=== PATIENT | male | born 1990 | race African-American/Black ===

== ENCOUNTER 2018-03-30 21:40 | Emergency (ER) | payer MEDICAID, OTHER ==
[~2018-03-30] VITALS: Ht 162.6 cm; Wt 69.0 kg
[~2018-03-30 21:40] MED LIST: SEROQUEL
[2018-03-30] MEDS ORDERED: ONDANSETRON HCL 4MG/2ML VIAL IV STA (22:23)
[2018-03-30] MEDS ORDERED: SODIUM CHLORIDE 0.9% 1,000 ML IV ONE (22:23)
[2018-03-30 23:20] LABS: BASOPHILS % 0.9 % (0.0-2.0); EOSINOPHILS % 3.2 % (0.0-5.0); HEMATOCRIT. 43.5 % (42.0-52.0); HEMOGLOBIN. 14.6 g/dL (14.0-18.0); LYMPHOCYTES % 32.4 % (20.0-50.0); MEAN CORPUSCULAR HEMOGLOBIN 27.6 pg (28.0-32.0); MEAN CORPUSCULAR VOLUME 82.2 fL (80.0-94.0); MEAN PLATELET VOLUME 10.5 fl (7.4-10.4); MONOCYTES % 12.2 % (2.0-8.0); NEUTROPHILS % 51.3 % (40.0-76.0); PLATELET 131 x1000/uL (130-400); RED BLOOD CELL COUNT 5.29 mill/uL (4.7-6.1); RED CELL DISTRIBUTION WIDTH 14.3 % (11.6-14.6)
[2018-03-30 23:20] LABS: CLARITY URINE CLEAR (CLEAR); COLOR URINE DARK YELLOW (YELLOW); KETONES URINE TRACE (NEGATIVE); LEUKOCYTE ESTERASE URINE NEGATIVE (NEGATIVE); NITRITE URINE NEGATIVE (NEGATIVE); OCCULT BLOOD URINE NEGATIVE (NEGATIVE); PH URINE 5.5 (4.5-8.0); PROTEIN URINE NEGATIVE (NEGATIVE); SPECIFIC GRAVITY URINE 1.025 (1.005-1.030)
[2018-03-30 23:21] LABS: CHLORIDE 105 mEq/L (98-107)
[2018-03-30 23:23] LABS: INR 1.1; PROTHROMBIN TIME 10.7 sec (9.1-11.1)
[2018-03-30] MEDS ORDERED: ACETAMINOPHEN 325MG TABLET PO ONE (23:30)
[2018-03-31 05:56] VITALS: BP 116/64
== END 2018-03-31 09:30 | disposition home or self-care (01) ==
LOC: ER 21:40
DX: R10.9 Unspecified abdominal pain (principal); R11.2 Nausea with vomiting, unspecified; J45.909 Unspecified asthma, uncomplicated; F12.10 Cannabis abuse, uncomplicated; F31.9 Bipolar disorder, unspecified; Z88.8 Allergy status to other drugs, medicaments and biological substances
CPT/HCPCS: 36415; 80053; 81003; 83690; 85025; 85610; 96361; 96374; 99285; J2405; J7030

== ENCOUNTER 2020-03-26 09:00 | Emergency (ER) | payer MEDICAID, OTHER ==
[~2020-03-26] VITALS: Ht 167.6 cm; Wt 65.0 kg
[2020-03-26] MEDS ORDERED: IBUPROFEN 600MG TABLET PO ONE (09:30)
[2020-03-26 09:40] VITALS: BP 134/82
== END 2020-03-26 09:48 | disposition home or self-care (01) ==
LOC: ER 09:00
DX: S10.93XA Contusion of unspecified part of neck, initial encounter (principal); S30.0XXA Contusion of lower back and pelvis, initial encounter; S00.93XA Contusion of unspecified part of head, initial encounter; J45.909 Unspecified asthma, uncomplicated; F12.10 Cannabis abuse, uncomplicated; Z88.3 Allergy status to other anti-infective agents; V49.9XXA Car occupant (driver) (passenger) injured in unspecified traffic accident, initial encounter; Y93.89 Activity, other specified; Y92.89 Other specified places as the place of occurrence of the external cause; Y99.8 Other external cause status
CPT/HCPCS: 99283

== ENCOUNTER 2021-03-22 02:51 | Emergency (ER) | payer OTHER ==
[~2021-03-22] VITALS: Ht 167.6 cm; Wt 58.0 kg
[2021-03-22] MEDS ORDERED: FAMOTIDINE 20MG TABLET PO ONE (04:00)
[2021-03-22] MEDS ORDERED: DICYCLOMINE 10 MG/5 ML ORAL SYR PO ONE (04:00)
[2021-03-22] MEDS ORDERED: VISCOUS LIDOCAINE 2% 15 ML UDC PO ONE (04:00)
[2021-03-22 04:04] VITALS: BP 112/48
[2021-03-22] MEDS ORDERED: FAMO-135 MT (05:11)
== END 2021-03-22 05:33 | disposition home or self-care (01) ==
LOC: ER 02:51
DX: R10.13 Epigastric pain (principal); K21.9 Gastro-esophageal reflux disease without esophagitis; F12.10 Cannabis abuse, uncomplicated; J45.909 Unspecified asthma, uncomplicated; Z88.8 Allergy status to other drugs, medicaments and biological substances
CPT/HCPCS: 99284

== ENCOUNTER 2021-06-14 22:33 | Emergency (ER) | payer MEDICAID, OTHER ==
[~2021-06-14] VITALS: Ht 165.1 cm; Wt 75.0 kg
[~2021-06-14 22:33] MED LIST changes: +FAMO-135 MT
[2021-06-14 23:13] VITALS: BP 117/89
[2021-06-14] MEDS ORDERED: IBUPROFEN 600MG TABLET PO ONE (23:15)
== END 2021-06-15 00:16 | disposition home or self-care (01) ==
LOC: ER 22:33
DX: J20.9 Acute bronchitis, unspecified (principal); J45.909 Unspecified asthma, uncomplicated; F17.210 Nicotine dependence, cigarettes, uncomplicated; Z88.8 Allergy status to other drugs, medicaments and biological substances; Z20.822 Contact with and (suspected) exposure to COVID-19
CPT/HCPCS: 71046; 87426; 99284

== ENCOUNTER 2021-06-22 01:15 | Emergency (ER) | payer MEDICAID, OTHER ==
[~2021-06-22] VITALS: Ht 165.1 cm; Wt 68.0 kg
[2021-06-22 02:00] VITALS: BP 121/81
[2021-06-22] MEDS ORDERED: ALBUTEROL (0.083%) 2.5MG/3ML NEB HHN ONE (02:30)
[2021-06-22] MEDS ORDERED: IPRATROPIUM BROMIDE (0.02%) 0.5MG/2.5ML NEB HHN ONE (02:30)
[2021-06-22] MEDS ORDERED: BENZ-16 MT (03:10)
[2021-06-22] MEDS ORDERED: ALBU6.7H15 INH (03:10)
== END 2021-06-22 03:33 | disposition home or self-care (01) ==
LOC: ER 01:15
DX: J06.9 Acute upper respiratory infection, unspecified (principal); J45.901 Unspecified asthma with (acute) exacerbation; Z88.8 Allergy status to other drugs, medicaments and biological substances
CPT/HCPCS: 94640; 99283; Z7610

== ENCOUNTER 2021-07-28 01:18 | Emergency (ER) | payer MEDICAID, OTHER ==
[~2021-07-28] VITALS: Ht 165.1 cm; Wt 82.0 kg
[~2021-07-28 01:18] MED LIST changes: +ALBU6.7H15 INH; +BENZ-16 MT
[2021-07-28] MEDS ORDERED: ACETAMINOPHEN 325MG TABLET PO STA (01:31)
[2021-07-28 02:10] VITALS: BP 106/55
[2021-07-28] MEDS ORDERED: ACET-2708 PO (02:56)
== END 2021-07-28 02:59 | disposition home or self-care (01) ==
LOC: ER 01:18
DX: S90.112A Contusion of left great toe without damage to nail, initial encounter (principal); B35.1 Tinea unguium; J45.909 Unspecified asthma, uncomplicated; F12.10 Cannabis abuse, uncomplicated; Z88.8 Allergy status to other drugs, medicaments and biological substances; W22.8XXA Striking against or struck by other objects, initial encounter; Y93.89 Activity, other specified; Y92.89 Other specified places as the place of occurrence of the external cause; Y99.8 Other external cause status
CPT/HCPCS: 73660; 99283

== ENCOUNTER 2021-08-10 14:39 | Emergency (ER) | payer MEDICAID ==
[~2021-08-10] VITALS: Ht 165.1 cm; Wt 71.0 kg
[~2021-08-10 14:39] MED LIST changes: +ACET-2708 PO
[2021-08-10 15:33] VITALS: BP 134/81
[2021-08-10] MEDS ORDERED: KETOROLAC 60MG/2ML VIAL IM ONE (19:00)
[2021-08-10] MEDS ORDERED: ACETAMINOPHEN 325MG TABLET PO ONE (19:00)
[2021-08-10] MEDS ORDERED: IBUP-2029 MT (19:23)
== END 2021-08-10 19:41 | disposition home or self-care (01) ==
LOC: ER 14:39
DX: R51.9 Headache, unspecified (principal); J45.909 Unspecified asthma, uncomplicated; Z88.8 Allergy status to other drugs, medicaments and biological substances; Z20.822 Contact with and (suspected) exposure to COVID-19
CPT/HCPCS: 87426; 99283; J1885

== ENCOUNTER 2021-08-16 14:58 | Emergency (ER) | payer MEDICAID ==
[~2021-08-16] VITALS: Ht 165.1 cm; Wt 63.0 kg
[~2021-08-16 14:58] MED LIST changes: +IBUP-2029 MT
[2021-08-16 15:58] VITALS: BP 122/84
== END 2021-08-16 16:22 | disposition home or self-care (01) ==
LOC: ER 14:58
DX: Z20.822 Contact with and (suspected) exposure to COVID-19 (principal); Z00.00 Encounter for general adult medical examination without abnormal findings; J45.909 Unspecified asthma, uncomplicated; F17.200 Nicotine dependence, unspecified, uncomplicated
CPT/HCPCS: 87426; 99283

== ENCOUNTER 2021-08-21 17:28 | Emergency (ER) | payer MEDICAID ==
[~2021-08-21] VITALS: Ht 165.1 cm; Wt 73.0 kg
[2021-08-21 18:12] VITALS: BP 114/70
== END 2021-08-21 19:20 | disposition home or self-care (01) ==
LOC: ER 17:28
DX: B34.9 Viral infection, unspecified (principal); Z20.822 Contact with and (suspected) exposure to COVID-19; J45.909 Unspecified asthma, uncomplicated; Z79.899 Other long term (current) drug therapy
CPT/HCPCS: 87426; 99283

== ENCOUNTER 2021-09-10 18:08 | Emergency (ER) | payer MEDICAID ==
[~2021-09-10] VITALS: Ht 165.1 cm; Wt 68.0 kg
[2021-09-10 18:38] VITALS: BP 117/68
== END 2021-09-10 19:08 | disposition home or self-care (01) ==
LOC: ER 18:12
DX: R53.83 Other fatigue (principal); Z20.822 Contact with and (suspected) exposure to COVID-19
CPT/HCPCS: 87426; 99283

== ENCOUNTER 2023-08-30 10:12 | Emergency (ER) | payer MEDICAID, OTHER ==
[~2023-08-30] VITALS: Ht 167.6 cm; Wt 69.0 kg
[~2023-08-30 10:12] MED LIST changes: +CLIN-116 MT
[2023-08-30 10:23] VITALS: O2SAT 100
[2023-08-30] MEDS ORDERED: CYCLOBENZAPRINE 10MG TABLET PO ONE (10:45)
[2023-08-30] MEDS ORDERED: KETOROLAC 15MG/ML VIAL IM ONE (10:45)
[2023-08-30] MEDS ORDERED: LIDO700A15 TP (11:29)
[2023-08-30] MEDS ORDERED: NAPR-1176 MT (11:29)
[2023-08-30 11:54] VITALS: BP 127/88; PULSE 77; RESP 18; TEMP 99.5
== END 2023-08-30 11:56 | disposition home or self-care (01) ==
LOC: ER 10:18
DX: M54.50 Low back pain, unspecified (principal); J45.909 Unspecified asthma, uncomplicated; Z88.3 Allergy status to other anti-infective agents; Z86.59 Personal history of other mental and behavioral disorders
CPT/HCPCS: 99283; 96372; J1885

== ENCOUNTER 2023-09-24 13:53 | Emergency (ER) | payer MEDICAID ==
[~2023-09-24] VITALS: Ht 165.1 cm; Wt 69.0 kg
[~2023-09-24 13:53] MED LIST changes: +LIDO700A15 TP; +NAPR-1176 MT
[2023-09-24 14:07] VITALS: BP 111/67; PULSE 76; RESP 14; TEMP 97.9; O2SAT 100
[2023-09-24] MEDS ORDERED: LIDOCAINE 5% PATCH TOP SCH (14:45)
[2023-09-24] MEDS ORDERED: METHOCARBAMOL 500MG TABLET PO ONE (14:45)
[2023-09-24] MEDS ORDERED: ACETAMINOPHEN 325MG TABLET PO ONE (14:45)
== END 2023-09-24 22:43 | disposition left against medical advice (07) ==
LOC: ER 13:53
DX: G89.29 Other chronic pain (principal); M54.50 Low back pain, unspecified; J45.909 Unspecified asthma, uncomplicated; Z88.3 Allergy status to other anti-infective agents; Z79.899 Other long term (current) drug therapy; Z86.59 Personal history of other mental and behavioral disorders
CPT/HCPCS: 99281

== ENCOUNTER 2024-01-31 08:50 | Emergency (ER) | payer MEDICAID, OTHER ==
[~2024-01-31] VITALS: Ht 172.7 cm; Wt 77.0 kg
[2024-01-31 09:01] VITALS: O2SAT 97
[2024-01-31] MEDS ORDERED: IBUP-2028 MT (10:47)
[2024-01-31 10:59] VITALS: BP 116/76; PULSE 89; RESP 18; TEMP 98.6
[2024-01-31] MEDS: ACETAMINOPHEN 325MG TABLET PO ONE (10:59)
[2024-01-31] MEDS: IBUPROFEN 400MG TABLET PO ONE (10:59)
== END 2024-01-31 11:08 | disposition home or self-care (01) ==
LOC: ER 08:50
DX: S93.402A Sprain of unspecified ligament of left ankle, initial encounter (principal); J45.909 Unspecified asthma, uncomplicated; Z88.3 Allergy status to other anti-infective agents; Z79.899 Other long term (current) drug therapy; Z86.59 Personal history of other mental and behavioral disorders; Y04.0XXA Assault by unarmed brawl or fight, initial encounter; Y93.89 Activity, other specified; Y92.89 Other specified places as the place of occurrence of the external cause; Y99.8 Other external cause status
CPT/HCPCS: 73610; 99283

== ENCOUNTER 2024-05-20 12:43 | Emergency (ER) | payer MEDICAID ==
[~2024-05-20] VITALS: Ht 165.1 cm; Wt 72.0 kg
[~2024-05-20 12:43] MED LIST changes: +IBUP-2028 MT
[2024-05-20 13:08] VITALS: O2SAT 99
[2024-05-20] MEDS ORDERED: IBUPROFEN 600MG TABLET PO ONE (14:00)
[2024-05-20] MEDS ORDERED: IBUP-2029 MT (15:15)
[2024-05-20 15:41] VITALS: BP 109/78; PULSE 80; RESP 16; TEMP 36.94740; O2SAT 99
[2024-05-20] MEDS: IBUPROFEN 600MG TABLET PO NR (15:42)
== END 2024-05-20 16:37 | disposition home or self-care (01) ==
LOC: ER 12:43
DX: S93.402A Sprain of unspecified ligament of left ankle, initial encounter (principal); F31.9 Bipolar disorder, unspecified; J45.909 Unspecified asthma, uncomplicated; Z88.6 Allergy status to analgesic agent; Z79.899 Other long term (current) drug therapy; V49.9XXA Car occupant (driver) (passenger) injured in unspecified traffic accident, initial encounter; Y93.89 Activity, other specified; Y92.89 Other specified places as the place of occurrence of the external cause; Y99.8 Other external cause status
CPT/HCPCS: 73610; 99283; Z7610

== ENCOUNTER 2024-06-01 21:03 | Emergency (ER) | payer MEDICAID ==
[~2024-06-01] VITALS: Ht 170.2 cm; Wt 71.7 kg
[2024-06-01 21:33] VITALS: BP 118/62; PULSE 76; RESP 16; TEMP 98.4; O2SAT 99
[2024-06-01 21:41] VITALS: O2SAT 99
[2024-06-01] MEDS ORDERED: PSEU120T56 MT (23:03)
== END 2024-06-02 00:18 | disposition home or self-care (01) ==
LOC: ER 21:03
DX: R09.81 Nasal congestion (principal); J45.909 Unspecified asthma, uncomplicated; F31.9 Bipolar disorder, unspecified; Z79.899 Other long term (current) drug therapy; Z91.09 Other allergy status, other than to drugs and biological substances; Z86.59 Personal history of other mental and behavioral disorders
CPT/HCPCS: 99282

== ENCOUNTER 2024-12-05 10:04 | Emergency (ER) | payer MEDICAID ==
[~2024-12-05] VITALS: Ht 165.1 cm; Wt 68.0 kg
[~2024-12-05 10:04] MED LIST changes: +LIDO-53 TP; -LIDO700A15 TP; +PSEU120T56 MT
[2024-12-05 10:09] VITALS: O2SAT 99
[2024-12-05 10:11] VITALS: BP 128/74; TEMP 36.7
[2024-12-05 11:21] VITALS: PULSE 88; RESP 22; O2SAT 94
[2024-12-05] MEDS: IPRATROPIUM BROMIDE (0.02%) 0.5MG/2.5ML NEB HHN STA (11:21)
[2024-12-05] MEDS: ALBUTEROL (0.083%) 2.5MG/3ML NEB HHN STA (11:21)
[2024-12-05] MEDS: METHYLPREDNISOLONE SOD SUCC 125MG/2ML (ACT-O-VIAL) IM ONE (11:26)
== END 2024-12-05 11:42 | disposition left against medical advice (07) ==
LOC: ER 10:04
DX: J45.901 Unspecified asthma with (acute) exacerbation (principal); F41.9 Anxiety disorder, unspecified; F31.9 Bipolar disorder, unspecified; Z91.048 Other nonmedicinal substance allergy status; Z79.899 Other long term (current) drug therapy; Z86.59 Personal history of other mental and behavioral disorders
CPT/HCPCS: 94640; 96372; 99283; J2919; Z7610 ×3; 94070; 94664; 98960